=== PATIENT | male | born 2000 | race Caucasian/White ===

== ENCOUNTER 2021-09-08 17:55 | Emergency (ER) | payer OTHER ==
[~2021-09-08] VITALS: Ht 188 cm; Wt 72.6 kg
[2021-09-08] MEDS ORDERED: HYDROCODON-ACE1 EA10 PO (19:49)
== END 2021-09-08 20:04 | disposition home or self-care (01) ==
LOC: ED 17:55
DX: S43.004A Unspecified dislocation of right shoulder joint, initial encounter (principal); V80.010A Animal-rider injured by fall from or being thrown from horse in noncollision accident, initial encounter; Y93.52 Activity, horseback riding
CPT/HCPCS: 23650; 73030; 99152; 99283-25; J2704; J7030

== ENCOUNTER 2021-10-29 17:14 | Emergency (ER) | payer OTHER ==
[~2021-10-29] VITALS: Ht 188 cm; Wt 72.6 kg
[~2021-10-29 17:14] MED LIST: HYDROCODON-ACE1 EA10 PO
[2021-10-29] MEDS ORDERED: IBU600 MG PO (20:39)
[2021-10-29] MEDS ORDERED: MAPAP500 MG PO (20:39)
== END 2021-10-29 21:00 | disposition home or self-care (01) ==
LOC: ED 17:14
DX: S62.512A Displaced fracture of proximal phalanx of left thumb, initial encounter for closed fracture (principal); W22.8XXA Striking against or struck by other objects, initial encounter
CPT/HCPCS: 29125; 73140; 90471; 90715; 99283-25

== ENCOUNTER 2021-11-03 09:50 | Day surgery (SDC) | payer OTHER ==
[~2021-11-03] VITALS: Ht 188 cm; Wt 75.0 kg
--- NOTE | ~2021-11-03 | OR ---
[facility] [address] [place], [place] [address] Draft DATE OF OPERATION: 11/03/2021 SURGEON: Anna Pagan MD PREOPERATIVE DIAGNOSIS: P1 fracture, right thumb. POSTOPERATIVE DIAGNOSIS: P1 fracture, right thumb. PROCEDURE PERFORMED: Closed reduction and percutaneous pinning, right thumb. RELAY ASSEMBLER: ADI Dixon ANESTHESIA: General. BLOOD LOSS: None. IMPLANTS: Three 1.25 K-wires. 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 There was an abrasion on the dorsal aspect, this was displaced and angulated. Risks and benefits of operative treatment were discussed with him. We planned on pinning the fracture and hopefully getting him into a cast such that he can compete in the college risks, benefits, and alternatives were discussed at length. He understands, wishes to proceed. DESCRIPTION OF PROCEDURE: Once consent was obtained, he was taken to the operating room. He slept on the day surgery bed and hand table was brought in. The hand was prepped and draped in standard sterile fashion. Closed reduction was obtained with relative ease as this was primarily a transverse fracture. A 1.25 K-wire was then passed from the ulnar aspect of the phalanx distally across the fracture engaging the body. Two more were placed in a PATIENT NAME: KILEY FORDE OPERATIVE REPORT DATE OF : 00 REPORT #: [id number] PHYSICIAN: ANNA PAGAN MD PCP: NO PRIMARY CARE PHYSICIAN REPORT IS CONFIDENTIAL AND NOT TO BE RELEASED WITHOUT AUTHORIZATION [facility] [address] [place], [place] [address] Draft crisscross fashion from the radial aspect. Once this was accomplished, the final radiograph showed good reduction, good alignment and pin placement. The pins were cut off at the skin. He was dressed with Xeroform, sterile cast padding and thumb spica splint. He tolerated the procedure well. All sponge, needle, and instrument counts were correct. Anna Pagan MD BA/MARLAL /[id number] Copies: ~ PATIENT NAME: KILEY FORDE OPERATIVE REPORT DATE OF : 00 REPORT #: [id number] PHYSICIAN: ANNA PAGAN MD PCP: NO PRIMARY CARE PHYSICIAN REPORT IS CONFIDENTIAL AND NOT TO BE RELEASED WITHOUT AUTHORIZATION
[~2021-11-03 09:50] MED LIST changes: +IBU600 MG PO; +MAPAP500 MG PO
[2021-11-03] MEDS ORDERED: DICLOFENAC SODI75 MG PO (13:08)
[2021-11-03] MEDS ORDERED: HYDROCODON-ACE1 EA10 PO (13:08)
== END 2021-11-03 15:00 | disposition home or self-care (01) ==
LOC: DS 09:50
PROVIDERS: ATTEND Specialist
PROC: 0PST34Z Reposition Right Finger Phalanx with Internal Fixation Device, Percutaneous Approach (ICD-10-PCS; principal; 2021-11-03 14:00)
DX: S62.511A Displaced fracture of proximal phalanx of right thumb, initial encounter for closed fracture (principal); Z20.822 Contact with and (suspected) exposure to COVID-19; Z96.651 Presence of right artificial knee joint; W31.9XXA Contact with unspecified machinery, initial encounter
CPT/HCPCS: 73140; 87502; C9803; J0690; J1100; J1885; J2250; J2405; J2704; J2765; J3010; J7121; U0003

== ENCOUNTER 2021-12-29 08:07 | Day surgery (SDC) | payer OTHER ==
[~2021-12-29] VITALS: Ht 188 cm; Wt 75.0 kg
[~2021-12-29 08:07] MED LIST changes: +DICLOFENAC SODI75 MG PO
--- NOTE | 2021-12-29 12:00 | NUR ---
12/29/21 Esther Randolph 1142 PT TO PACU SLEEPY O2 MASK IN PLACE FOGGING NOTED.
--- NOTE | 2021-12-30 07:19 | OR ---
[facility] [address] [facility] [place], [place] [address] Signed DATE OF OPERATION: 12/29/2021 SURGEON: Anna Pagan MD PREOPERATIVE DIAGNOSIS: P1 fracture, right thumb, status post pinning. POSTOPERATIVE DIAGNOSIS: P1 fracture, right thumb, status post pinning. PROCEDURE PERFORMED: Pin removal deep. FIBRE TECHNOLOGIST: None. ANESTHESIA: MAC. BLOOD LOSS: Minimal. 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 He fractured his thumb, this was closed reduced and pinned and it healed. Risks and benefits of the operative treatment were discussed with him and he elected to proceed. Once consent was obtained, he was taken to the operating room. After adequate anesthesia, the hand was prepped and draped in a standard sterile fashion. The two pins were poked back through the skin removed and the third was located in the C-arm and a small incision was made overlying it, it was then removed. All hardware was confirmed removed. The wounds were then dressed with Xeroform and gauze. He tolerated the procedure well. All sponge, needle, and instrument counts were correct. Anna Pagan MD BA/MODL Electronically Signed By: ANNA PAGAN MD 12/30/21 0719 PATIENT NAME: KILEY FORDE OPERATIVE REPORT DATE OF : 00 REPORT #: [id number] PHYSICIAN: ANNA PAGAN MD PCP: NO PRIMARY CARE PHYSICIAN REPORT IS CONFIDENTIAL AND NOT TO BE RELEASED WITHOUT AUTHORIZATION [address] [place], [place] [address] Signed /[id number] Copies: ~ Electronically Signed By: ANNA PAGAN MD 12/30/21718 PATIENT NAME: KILEY FORDE OPERATIVE REPORT DATE OF : 00 REPORT #: [id number] PHYSICIAN: ANNA PAGAN MD PCP: NO PRIMARY CARE PHYSICIAN REPORT IS CONFIDENTIAL AND NOT TO BE RELEASED WITHOUT AUTHORIZATION
== END 2021-12-29 12:30 | disposition home or self-care (01) ==
LOC: DS 08:07
PROVIDERS: ATTEND Specialist
PROC: 0RP Upper Joints, Removal (ICD-10-PCS; principal; 2021-12-29 11:15)
DX: S62.511D Displaced fracture of proximal phalanx of right thumb, subsequent encounter for fracture with routine healing (principal); X58.XXXD Exposure to other specified factors, subsequent encounter
CPT/HCPCS: J0690; J2001; J2250; J2704; J2795; J7121